=== PATIENT | female | born 1995 | race Asian ===

== ENCOUNTER 2018-06-08 14:42 | Emergency (ER) | payer BC ==
--- NOTE | 2018-06-08 16:26 | EDPHY ---
H & P Time Seen by Provider: 06/08/18 15:40 HPI/ROS: Chief complaint. Wasp sting HPI. 22-year-old female was stung on the left posterior calf by a wasp 2 days ago while she was out for run. She has been using Zyrtec. It has continued to be swollen and somewhat warm and red. She has a history of reactions to wasp stings. She has been slightly lightheaded and feels that her heart slightly flutters. However no shortness of breath or trouble swallowing. She went to [facility] today and lab work was done including a D-dimer. The D-dimer was elevated and she was sent to the emergency department to rule out DV T. She has no symptoms above the knee. ROS Constitutional. no fever/chills, no weakness Eyes. no problems with vision ENT. no sore throat, no nasal drainage Cardiovascular. no chest pain Respiratory. no shortness of breath, no cough Abdominal. no abdominal pain, no nausea/vomiting, no diarrhea . no problems urinating MS. Left calf pain and swelling Skin. no rash Lymph. no swollen glands Neuro. no headache, no dizziness, no difficulty walking or with speech Past Medical/Surgical History: Bilateral foot surgery, adenoidectomy Unknown family history Social History: Single, nonsmoker, no alcohol Smoking Status: Never smoked Physical Exam: General Appearance: Alert well-developed female mild distress vital signs are stable Eyes: Pupils equal and round no pallor or injection. ENT, Mouth: Mucous membranes are moist. Respiratory: There are no retractions, lungs are clear to auscultation. Cardiovascular: Regular rate and rhythm. Gastrointestinal: Abdomen is soft and nontender, no masses, bowel sounds normal. Neurological: Awake and alert, sensory and motor exams grossly normal. Skin: Warm and dry, no rashes. Musculoskeletal: Neck is supple nontender. Extremities left posterior calf is somewhat erythematous and a little bit tight. Mildly tender to palpation. No evidence of sting or or foreign body. No symptoms above the thigh Psychiatric: Patient is oriented X 3, there is no agitation. Constitutional: Initial Vital Signs Temperature (C) 37.1 C 06/08/18 15:03 Heart Rate 67 06/08/18 15:03 Respiratory Rate 16 06/08/18 15:03 Blood Pressure 103/61 06/08/18 15:03 O2 Sat (%) 99 06/08/18 15:03 O2 Delivery Mode Room Air Allergies/Adverse Reactions: No Known Allergies Allergy (Verified 06/08/18 15:07) Home Medications: Medication Instructions Recorded Control 06/08/18 Medical Decision Making - Diagnostics Imaging Results: Imaging Impressions Extremity Venous Study 06/08/18 16:34 Impression: No left lower extremity DVT. Findings and recommendations discussed with FRANCOIS KLINE at 1713 hour, 2017. Ultrasound left lower extremity reviewed by me and discussed with Radiology shows no evidence for DVT ED Course/Re-evaluation: Re-evaluation 5:20 p.m. Patient is stable. Patient, her mom, and I discussed imaging study results, treatment plan including criteria for return importance of follow-up and further evaluation. They expressed understanding and agreement Differential Diagnosis: I think this is wasp sting with localized reaction. I did consider thromboembolic disease. There is nothing to suggest pulmonary embolus. Ultrasound of the involved calf is normal Departure - Departure Disposition: Home, Routine, Self-Care Clinical Impression: Wasp sting Qualifiers: Encounter type: initial encounter Injury intent: accidental or unintentional Qualified Code(s): T63.461A - Toxic effect of venom of wasps, accidental ( unintentional), initial encounter Condition: Good Instructions: Insect Bite or Sting (ED) Additional Instructions: Ice to calf next 24 hr. Elevated as much as possible. Continue Zyrtec. Ibuprofen 400 mg every 6 hr for discomfort. Activity as tolerated. Return for worsening symptoms. Recheck in 2-3 days if not improving Referrals: Harriett Valadez MD [Primary Care Provider] - 2-3 days, if not improved
[2018-06-08 17:33] VITALS: BP 103/66
== END 2018-06-08 17:32 | disposition home or self-care (01) ==
DX: T63.461A Toxic effect of venom of wasps, accidental (unintentional), initial encounter (principal)